=== PATIENT | female | born 1990 | race African-American/Black ===

== ENCOUNTER 2016-07-04 20:45 | Emergency (ER) | payer MEDICAID ==
[2016-07-04 20:50] VITALS: BP 139/91; PULSE 99; TEMP 98.6; BMI 29.2
--- NOTE | 2016-07-04 21:00 | EDPRACDOC ---
- General Information Chief Complaint: Medication Refill Stated Complaint: MED REFILL Time Seen by Provider: 07/04/16 20:54 Mode Of Arrival: Car Home Medications: Home Medications Medroxyprogesterone Acet [Depo-Provera] 150 mg IM [id number] 08/29/15 Ketorolac Tromethamine 10 mg PO Q6H PRN #20 tab 12/05/15 Pentazocine HCl/Naloxone HCl [Talwin Nx Tablet] 1 tab PO Q4-6H 12/05/15 Duloxetine [Cymbalta] 60 mg PO DAILY #30 capsule 07/04/16 Trazodone HCl 150 mg PO HS #30 tab 07/04/16 Allergies/Adverse Reactions: Allergies Allergy/AdvReac Type Severity Reaction Status Date / Time No Known Allergies Allergy Verified 07/04/16 20:50 - History of Present Illness Duration Without Medication: 1-2 WEEKS HPI: PT PRESENTS TO ED FOR MEDICATION REFILL. STATES WAS IN REHAB GOT OUT AND HAD TO CHANGE MEDICAID CARD AND CANT BE SEEN FOR APPROX 1 MONTH AND HAS RAN OUT OF CYMBALTA AND TRAZODONE. Context: Reports: Ran out of Medication Medication for: Reports: Psychiatric Pain: Reports: None ED Past Medical History - History Reviewed Yes Nurses notes reviewed and agree except as marked Travel Outside of [place] in the Last 3 Months?: No - Patient Medical History GI/ History: Denies: Urinary Tract Infection Psychological History: Reports: Depression, Substance Use Disorder (OPIATES) - Social Medical History Smoking Status: Heavy tobacco smoker (5 or more cigarettes/day or daily pipe/ cigar) Social History: Reports: Cocaine Use, Marijuana Use ETOH: None Substance Abuse: Illicit Drugs Lives With: Other Lives In: Home EDM Review of Systems - Review of Systems ROS Negative Except as Marked: Yes All systems reviewed and were negative except as marked Constitutional: No Symptoms Reported. negative: Fever, Chills, Weakness, Fatigue, Loss of Appetite Eyes: No Symptoms Reported. negative: Redness, Blurred Vision, Double Vision, Discharge, Pain, Light Sensitive, Photophobia Ears: No Symptoms Reported. negative: Pain, Hearing Loss, Drainage, Ear Pulling Throat: No Symptoms Reported. negative: Pain, Swelling Nose: No Symptoms Reported. negative: Congestion, Bleeding, Discharge, Injection, Swelling, Deformity, Ecchymosis, Tender, Abrasion, Laceration Mouth: No Symptoms Reported. negative: Pain, Drooling Respiratory: No Symptoms Reported. negative: Cough, Brassy Cough, Barky Cough, Shortness of Breath, Wheezing, Hemoptysis Cardiovascular: No Symptoms Reported. negative: Chest Pain, Palpitations, Syncope, Edema, Orthopnea, PND, Skin Mottling, Cyanosis Gastrointestinal: No Symptoms Reported. negative: Pain, Constipation, Nausea, Vomiting, Diarrhea, Melena, Formula Intolerance Genitourinary: No Symptoms Reported. negative: Dysuria, Hematuria, Frequency, Discharge, Bleeding, Testicular Pain, Neurological: No Symptoms Reported. negative: Headache, Dizziness, Seizure, Numbness, Weakness, Speech Difficulty, Gait Difficulty Musculoskeletal: No Symptoms Reported. negative: Neck, Chestwall, Ribs, Back, Shoulder, Arm, Elbow, Forearm, Wrist, Hand, Pelvis, Hip, Femur, Knee, Leg, Ankle , Foot Integumentary: No Symptoms Reported. negative: Itching, Rash, Bruising, Wound Allergic/Immunologic: No Symptoms Reported. negative: Hives, Itching Hematologic: No Symptoms Reported. negative: Lymphadenopathy, Easy Bruising, Easy Bleeding Endocrine: No Symptoms Reported. negative: Weight Gain, Weight Loss Psychiatric: No Symptoms Reported. negative: Anxiety, Depression, Hallucinations, Insomnia, Suicidal - Physical Exam Constitutional: No apparent distress, Alert (Awake) Oriented to: Time, Person, Place Last recorded Vital Signs: Last Vital Signs Temp 98.6 F 07/04/16 20:47 Pulse 99 07/04/16 20:47 Resp 20 07/04/16 20:47 BP 139/91 07/04/16 20:47 Pulse Ox 98 07/04/16 20:47 Oxygen Pulse Oxygen Saturation 98 O2 Device Room Air Oxygen Flow Rate Fraction of Inspired Oxygen ( FIO2) - HEENT Head: Normal ( normocephalic) Eye Exam: Normal (PERRL, EOMI, Sclera white) Oropharynx: Normal (Pharynx:Moist without exudate,Gums-no swelling) Tympanic Membrane: Normal ENT EAC: Normal TMJ: Normal Nose: No Symptoms Reported (septum midline) Neck: Normal (FROM, trachea at midline) - Respiratory/Cardiovascular Respiratory: Normal - CTA (BBS clear to auscultation without adventitious sounds ) Cardiovascular: Normal (RRR without murmur, gallop or rub) - GI Auscultation: Normal (NABS) Palpation: Normal (Soft,No rebound or guarding, non distended) Tenderness: Non tender Damon's Sign: Negative - Musculoskeletal Back: Normal (Non-Tender) Extremities: Normal (Normal tone, Pulses 2+ No cyanosis or edema, FROM) - Integumentary Skin: Normal, Warm, Dry Lymphatics: Normal (no adenopathy) - Neurologic Memory Impaired: Normal Motor Function: Normal (Normal tone, Pulses 2+ No cyanosis or edema, FROM) Cranial Nerve: Normal (CN II-X11 intact sensation, strength 5/5) Cerebellar: Normal Mood Description: Normal Perception: Normal - Differential Diagnosis Medication Refill - Additional Information PT DENIES SUICIDAL AND HOMICIDAL IDEATIONS AT THIS TIME. Decision Time to Discharge: 20:59 - Departure Disposition: Home Condition: Stable Final Diagnosis: Medication refill Instructions: Medication Refill Education/Counseling Given To: Patient Education/Counseling Given Regarding: Diagnosis, Treatment, Prognosis, Follow Up Referrals: None,No Provider [Primary Care Provider] - One Week Prescriptions: Duloxetine [Cymbalta] 60 mg PO DAILY #30 capsule Trazodone HCl 150 mg PO HS #30 tab Forms: Primary / Family Care Contact
== END 2016-07-04 21:05 | disposition home or self-care (01) ==
LOC: EDMC 20:45
DX: Z76.0 Encounter for issue of repeat prescription (principal)
CPT/HCPCS: 99282